=== PATIENT | male | born 1985 | race Two or more races ===

== ENCOUNTER 2018-11-17 20:15 | Emergency (ER) | payer SELFPAY ==
[~2018-11-17] VITALS: Ht 185.4 cm; Wt 93.9 kg
[2018-11-17 20:57] VITALS: BP 160/85
--- NOTE | 2018-11-17 21:04 | NUR ---
URINE COLLECTED AND SENT TO LAB.
[2018-11-17 21:22] LABS: APPEARANCE,URINE Clear (CLEAR); BILIRUBIN,URINE Negative (NEGATIVE); BLOOD, URINE Negative Ery/uL (NEGATIVE); COLOR,URINE Yellow (YELLOW); KETONES,URINE 15 (NEGATIVE); LEUKOCYTE ESTERASE ,URINE Negative (NEGATIVE); NITRITE, URINE Negative (NEGATIVE); PH,URINE 6.5 (5.0-8.0); PROTEIN,URINE Negative (NEGATIVE); UGLUCOSE Negative (NEGATIVE)
[2018-11-17] MEDS ORDERED: AZITHROMYCIN 250 MG TABLET PO ONE (22:00)
[2018-11-17] MEDS ORDERED: CEFTRIAXONE 500 MG VIAL IM ONE (22:00)
[2018-11-17] MEDS ORDERED: CEFTRIAXONE 500 MG VIAL ONE (22:00)
[2018-11-17] MEDS ORDERED: AZITHROMYCIN 250 MG TABLET ONE (22:00)
[2018-11-17] MEDS ORDERED: LIDOCAINE /MPF 1% VIAL 5 ML VIAL ONE (22:01)
== END 2018-11-17 22:23 | disposition home or self-care (01) ==
LOC: ER 20:29
DX: N34.2 Other urethritis (principal); F17.200 Nicotine dependence, unspecified, uncomplicated; Z20.2 Contact with and (suspected) exposure to infections with a predominantly sexual mode of transmission
CPT/HCPCS: 81001; 87491; 87591; 96372; 99283; J0696; J3490; 81000-TC